=== PATIENT | female | born 1995 | race American Indian/Alaskan Native ===

== ENCOUNTER 2016-09-23 15:09 | Emergency (ER) | payer MEDICAID ==
--- NOTE | 2016-09-23 15:24 | ED PDOC ---
Arrival/HPI - General Time Seen by Provider: 09/23/16 15:20 Historian: Patient - History of Present Illness Narrative History of Present Illness (Text): 09/23/16 15:20 21yo female with PMHx of psychiatric disease BIBA for evaluation s/p trauma. She complaint of b/l knee, neck and back pain s/p trauma minutes [employer]. states her leg went into a pot hole while walking and she fell. Denies LOC, nausea, vomiting, focal weakness, urinary/fecal incontinence, abdominal pain, nausea, vomiting, dizziness, any other complaint. Past Medical History - Provider Review Nursing Documentation Reviewed: Yes Family/Social History - Physician Review Nursing Documentation Reviewed: Yes Family/Social History: Unknown Family HX Allergies/Home Meds Allergies/Adverse Reactions: Allergies No Known Allergies Allergy (Verified 09/23/16 15:55) Review of Systems - Physician Review All systems were reviewed & negative as marked: Yes - Review of Systems Constitutional: Normal Eyes: Normal ENT: Normal Respiratory: Normal Cardiovascular: Normal Gastrointestinal: Normal Genitourinary Female: Normal Musculoskeletal: Arthralgias (B/L knee), Back Pain, Neck Pain Skin: Normal Neurological: Normal Endocrine: Normal Hemo/Lymphatic: Normal Psychiatric: Normal Physical Exam Vital Signs Reviewed: Yes Vital Signs Temp Pulse Resp BP Pulse Ox 09/23/16 19:41 71 16 140/73 98 09/23/16 18:17 76 16 140/77 98 09/23/16 16:04 98.7 F 90 16 160/58 H 99 Temperature: Afebrile Blood Pressure: Normal Pulse: Regular Respiratory Rate: Normal Appearance: Positive for: Well-Appearing, Non-Toxic, Comfortable Pain Distress: None Mental Status: Positive for: Alert and Oriented X 3 - Systems Exam Head: Present: Atraumatic, Normocephalic Pupils: Present: PERRL Extroacular Muscles: Present: EOMI Conjunctiva: Present: Normal Mouth: Present: Moist Mucous Membranes. No: Normal Teeth (mildy loose upper central incissor noted) Neck: Present: Normal Range of Motion (With pain on lateral movement), MIDLINE TENDERNESS. No: Paraspinal Tenderness Respiratory/Chest: Present: Clear to Auscultation, Good Air Exchange. No: Respiratory Distress, Accessory Muscle Use Cardiovascular: Present: Regular Rate and Rhythm, Normal S1, S2. No: Murmurs Abdomen: Present: Normal Bowel Sounds. No: Tenderness, Distention, Peritoneal Signs Back: Present: Midline Tenderness. No: Paraspinal Tenderness, Pain with Leg Raise Upper Extremity: Present: Normal Inspection, Normal ROM. No: Cyanosis, Edema Lower Extremity: Present: NORMAL PULSES, Tenderness (B/L knee), Neurovascularly Intact. No: Edema, CALF TENDERNESS, Normal ROM (Limited on flexion secondary to pain), Swelling, Erythema, Deformity, Temperature Abnormalties Neurological: Present: GCS=15, CN II-XII Intact, Speech Normal, Motor Func Grossly Intact, Normal Sensory Function, Normal Cerebellar Funct, Memory Normal , Other (No focal neurological deficit) Skin: Present: Warm, Dry, Normal Color. No: Rashes Psychiatric: Present: Alert, Oriented x 3, Normal Insight, Normal Concentration Medical Decision Making ED Course and Treatment: 09/23/16 21:15 Patient declined xray She was treated with Ibuprofen and DC home. She was ambulatory in ED and have no focal neurological deficit - RAD Interpretation Radiology Orders: 09/23/16 15:57 LS SPINE WITH OBL > 18 YRS OLD [RAD] Stat 09/23/16 15:58 CERVICAL SPINE >18YR W/OBLIQUE [RAD] Stat KNEES BILATERAL [RAD] Stat - Medication Orders Current Medication Orders: Discontinued Medications Ibuprofen (Motrin Tab) 600 mg PO STAT STA Stop: 09/23/16 18:02 Last Admin: 09/23/16 18:20 Dose: 600 MG MAR Pain/Vitals Document 09/23/16 18:20 SZA (Rec: 09/23/16 18:37 SZA [id number]) Pain Reassessment Is This A Pain ReAssessment? No Sleep Is patient sleeping during reassessment? No Presence of Pain Presence of Pain Yes Pain Scale Used Pain Scale Used Numeric Disposition/Present on Arrival - Present on Arrival Any Indicators Present on Arrival: No History of DVT/PE: No History of Uncontrolled Diabetes: No Urinary Catheter: No History of Decub. Ulcer: No History Surgical Site Infection Following: None - Disposition Have Diagnosis and Disposition been Completed?: Yes Diagnosis: Back pain, Knee pain, Neck pain Disposition: HOME/ ROUTINE Disposition Time: 18:05 Patient Plan: Discharge Condition: STABLE Discharge Instructions (ExitCare): Back Pain (ED), Knee Pain (ED) Additional Instructions: Follow up with your doctor Return to ED for any new symptoms Prescriptions: Ibuprofen [Motrin Tab] 600 mg PO Q6 #20 tab Referrals: Andi Michaels DO [Staff Provider] - Follow up with primary
[2016-09-23 16:16] VITALS: RESP 16; TEMP 98.7
[2016-09-23 18:39] VITALS: O2SAT 98
[2016-09-23 19:42] VITALS: BP 140/73; PULSE 71
== END 2016-09-23 19:41 | disposition home or self-care (01) ==
LOC: ED 15:09 → MERGE 15:09 → ED 19:41
DX: M25.562 Pain in left knee (principal); M25.561 Pain in right knee; M54.2 Cervicalgia; M54.9 Dorsalgia, unspecified